=== PATIENT | male | born 1965 | race Asian ===

== ENCOUNTER 2019-09-24 08:36 | Emergency (ER) | payer OTHER ==
[~2019-09-24] VITALS: Ht 167.6 cm; Wt 68.0 kg
[2019-09-24 09:15] VITALS: BP_SYST 155
--- NOTE | 2019-09-24 11:45 | NUR ---
Patient to ER bed 2 to gown for evaluation. Side rails up. Report given to Heidi FERGUSON.
--- NOTE | 2019-09-24 11:55 | NUR ---
ER at bedside examining patient.
--- NOTE | 2019-09-24 12:00 | NUR ---
pt refused pain medication
--- NOTE | 2019-09-24 12:04 | NUR ---
sling placed to the right arm. Pt tolerated well.
[2019-09-24 12:15] VITALS: BP_SYST 155
== END 2019-09-24 12:04 | disposition home or self-care (01) ==
LOC: SED 08:36
DX: M75.31 Calcific tendinitis of right shoulder (principal)
CPT/HCPCS: 73030; 99283